=== PATIENT | female | born 1995 | race Caucasian/White ===

== ENCOUNTER 2017-04-29 08:40 | Inpatient (IN) | payer MEDICAID ==
[~2017-04-29] VITALS: Ht 152.4 cm; Wt 67.0 kg
[2017-04-29] VITALS (14 sets, daily range): BP systolic 106–121; BP diastolic 55–66; PULSE 80–96; RESP 15–18; TEMP 97.8–98.4; O2SAT 97–99
[~2017-04-29 08:40] MED LIST: PRENMIS9 PO; [UNRECOGNIZED DRUG - CODE] RECTAL
[2017-04-29] MEDS ORDERED: LACTATED RINGER'S 1000 ML INJ 1,000 ML IV ONE (09:48)
--- NOTE | 2017-04-29 09:50 | HHI.HP ---
HPI Chief Complaint Scheduled Date Seen: Apr 29, 2017 Travel History International Travel<30 Days: No Contact w/Intl Traveler<30Days: No Known Affected Area: No History of Present Illness HPI Patient is a 22 year old at 39/1 weeks gestation that presents to the [facility] for a scheduled . She is doing well today and has no acute concerns. She denies loss of fluid, vaginal bleeding, contractions, and endorses positive movements. She has no fever or chills. Weeks Gestation: 39 Para: 1 : 2 History Past Medical History Medical History: Denies Significant Hx Obstetric History Obstetric History First was postdates and was delivered by to failure to progress Past Surgical History Narrative Surgical section Family History Family History: Negative Social History Alcohol Use: No Tobacco Use: No Substance Abuse: No Allergies-Medications (Allergen,Severity, Reaction): Coded Allergies: No Known Allergies (Verified Adverse Reaction, Unknown, 04/18/17) Home Meds Active Scripts Hydrocortisone-Pramoxine Rectal (Procort Rectal) 1.85-1.15% Cream, 1 APPLIC RECTAL QID Y for ITCHING/INFLAMMATION, #60 GM 2 Refills Prov:Jessika Hearn 04/27/17 Uch540/Iron/Folic/Om3 ([facility] Dha Essential Pack) 27 Mg Iron-1 Mg- 374 Mg Cmbpkgdrcp, 1 TAB PO DAILY, #30 BOTTLE 11 Refills Prov:Jessika Hearn 01/18/17 Review of Systems Except as stated in HPI: all other systems reviewed are Neg General / Constitutional: No: Fever, Chills Eyes: No: Blurred Vision, Pain HENT: No: Headaches Cardiovascular: No: Chest Pain or Discomfort Respiratory: No: Short of Breath Gastrointestinal: No: Nausea, Vomiting Genitourinary: No: Dysuria Musculoskeletal: No: Weakness Physical Exam Narrative GENERAL: Well-nourished, well-developed patient. SKIN: Warm and dry. HEAD: Normocephalic and atraumatic. EYES: No scleral icterus. No injection or drainage. ENT: No nasal drainage noted. Mucous membranes pink. Airway patent. NECK: Supple, trachea midline. No JVD. CARDIOVASCULAR: Regular rate and rhythm without murmurs, gallops, or rubs. RESPIRATORY: Breath sounds equal bilaterally. No accessory muscle use. ABDOMEN/GI: Abdomen soft, non-tender, bowel sounds present, no rebound, no guarding Gravid to 39 weeks size Uterine Contractions: Irregular contractions FHT's: Category: 1 Baseline: 150 Reactive: Moderate Variability: Multiple accelerations present Decels: None EXTREMITIES: No cyanosis or edema. NEUROLOGICAL: Awake and alert. Motor and sensory grossly within normal limits. Five out of 5 muscle strength in all muscle groups. Normal speech. Caprini VTE Risk Assessment Caprini VTE Risk Assessment: No/Low Risk (score <= 1) Caprini Risk Assessment Model Point Value = 1 Point Value = 2 Point Value = 3 Point Value = 5 Age 41-60 Minor surgery BMI > 25 kg/m2 Swollen legs Varicose veins or History of unexplained or recurrent spontaneous Oral contraceptives or hormone replacement Sepsis (< 1 month) Serious lung disease, including pneumonia (< 1 month) Abnormal pulmonary function Acute myocardial infarction Congestive heart failure (< 1 month) History of inflammatory bowel disease Medical patient at bed rest Age 61-74 Arthroscopic surgery Major open surgery (> 45 min) Laparoscopic surgery (> 45 min) Malignancy Confined to bed (> 72 hours) Immobilizing plaster cast Central venous access Age >= 75 History of VTE Family history of VTE Factor V Leiden Prothrombin [id number] Lupus anticoagulant Anticardiolipin antibodies Elevated serum homocysteine Heparin-induced thrombocytopenia Other congenital or acquired thrombophilia Stroke (< 1 month) Elective arthroplasty Hip, pelvis, or leg fracture Acute spinal cord injury (< 1 month) Prophylaxis Regimen Total Risk Factor Score Risk Level Prophylaxis Regimen 0-1 Low Early ambulation 2 Moderate Order ONE of the following: *Sequential Compression Device (SCD) *Heparin 5000 units SQ BID 3-4 Higher Order ONE of the following medications: *Heparin 5000 units SQ TID *Enoxaparin/Lovenox 40 mg SQ daily (WT < 150 kg, CrCl > 30 mL/min) *Enoxaparin/Lovenox 30 mg SQ daily (WT < 150 kg, CrCl > 10-29 mL/min) *Enoxaparin/Lovenox 30 mg SQ BID (WT < 150 kg, CrCl > 30 mL/min) AND/OR *Sequential Compression Device (SCD) 5 or more Highest Order ONE of the following medications: *Heparin 5000 units SQ TID (Preferred with Epidurals) *Enoxaparin/Lovenox 40 mg SQ daily (WT < 150 kg, CrCl > 30 mL/min) *Enoxaparin/Lovenox 30 mg SQ daily (WT < 150 kg, CrCl > 10-29 mL/min) *Enoxaparin/Lovenox 30 mg SQ BID (WT < 150 kg, CrCl > 30 mL/min) AND *Sequential Compression Device (SCD) Data Data Vital Signs Reviewed: Yes Orders Orders Admit To Inpatient (04/29/17 ) Code Status (04/29/17 09:48) Vital Signs (Adult) .ON ADMISSION (04/29/17 09:48) Activity Oob Ad Saida (04/29/17 09:48) Heart (04/29/17 09:48) Urinary Catheter Management VELIA.Q8H (04/29/17 09:48) ^ Preps (04/29/17 09:48) Scd / Vladimir / Foot Pump VELIA.QSHIFT (04/29/17 09:48) ^ Ultrasound For Locatio (04/29/17 09:48) Diet Npo (04/29/17 Breakfast) Lactated Ringer's 1000 Ml Inj (Lr 1000 M (04/29/17 09:48) Lactated Ringer's 1000 Ml Inj (Lr 1000 M (04/29/17 10:18) Cefazolin 2 Gm Premix (Ancef 2 Gm Premix (04/29/17 11:00) Citric Acid-Sodium Citrate Liq (Bicitra (04/29/17 11:30) Type And Screen (04/29/17 09:48) Complete Blood Count With Diff (04/29/17 09:48) Urinalysis - C+S If Indicated (04/29/17 09:48) Drug Screen, Random Urine (04/29/17 09:48) Inpatient Certification (04/29/17 ) Specimen To Be Collected PRN (04/29/17 09:48) Specimen To Be Collected PRN (04/29/17 09:48) Assessment/Plan Assessment and Plan 22-year-old at 39/1 weeks gestation presents for repeat section -Intrauterine , heart tones reassuring category 1 -Posterior cervix on ultrasound -Admit to L&D -Nothing by mouth -Cefazolin 2 grams IV -Continue routine antepartum care Discharge Planning Possible discharge home in 2-3 days Maegan Sheriff MD R2 Apr 29, 2017 09:50
--- NOTE | 2017-04-29 09:52 | HHI.HP ---
History & Physical H&P RN MILITARY Consult (Detail) Patient Name: Valentina Palacios Unit Number: [id number] Date of : 1995 Patient Status: Registered Clinic Attending Doctor: Dionicio Alejandro II, MD HPI HPI Chief Complaint Desires repeat Date Seen: Apr 29, 2017 Time Seen: 0900 Travel History International Travel<30 Days: No Contact w/Intl Traveler<30Days: No Known Affected Area: No History of Present Illness HPI Patient is 22-year-old white female previous 1 now for repeat C -section. She has no complaints problems this , [facility]. She states vitamins has no other medications or issues at this time. Patient does want a repeat but no tubal ligation. Weeks Gestation: 3 9 Para: 1 : 2 History (Limited) History Obstetric History Obstetric History 1 for failure to progress Past Surgical History Narrative Surgical 1 Social History Alcohol Use: No Tobacco Use: No Substance Abuse: No Allergies-Medications Allergies-Medications (Allergen,Severity, Reaction): Coded Allergies: No Known Allergies (Verified Adverse Reaction, Unknown, 04/18/17) Home Meds Active Scripts Jah284/Iron/Folic/Om3 ([facility] Dha Essential Pack) 27 Mg Iron-1 Mg- 374 Mg Cmbpkgdrcp, 1 TAB PO DAILY, #30 BOTTLE 11 Refills Prov:Jessika Hearn 01/18/17 ROS Review of Systems General / Constitutional: No: Fever, Weight Gain, Chills, Other Eyes: No: Diploplia, Blurred Vision, Visual changes, Pain, Photophobia HENT: No: Headaches, Vertigo, Lightheadedness Cardiovascular: No: Irregular Rhythm, Chest Pain or Discomfort, Palpitations, Tachycardia, Syncope, Varicosities, Edema, Cyanosis Respiratory: No: Cough, Short of Breath, Other Gastrointestinal: No: Nausea, Vomiting, Diarrhea Genitourinary: No: Decreased Urinary Output, Oliguria Musculoskeletal: No: Limited ROM, Weakness, Cramping, Edema, Pain Skin: No Rash, No Itching, No Dryness, No Lumps, No Change in Pigmentation, No Change in Nails, No Alopecia, No Lesions Neurologic: No: Weakness, Dizziness, Syncope, Focal Abnormalities, Coordination Problem, Headache, Slurred Speech, Seizures Psychiatric: No: Depression, Suicidal Ideations, Homicidal Ideation Endocrine: No: Heat Intolerance, Cold Intolerance, Polydipsia, Polyuria, Other Physical Exam Physical Exam Narrative GENERAL: Well-nourished, well-developed patient. SKIN: Warm and dry. HEAD: Normocephalic and atraumatic. EYES: No scleral icterus. No injection or drainage. ENT: No nasal drainage noted. Mucous membranes pink. Airway patent. NECK: Supple, trachea midline. No JVD. CARDIOVASCULAR: Regular rate and rhythm without murmurs, gallops, or rubs. RESPIRATORY: Breath sounds equal bilaterally. No accessory muscle use. BREASTS: Bilateral exam showed no masses , no retractions, no nipple discharge. ABDOMEN/GI: Abdomen soft, non-tender, bowel sounds present, no rebound, no guarding Gravid to [3 9-] weeks size Fundal Height: [-3 9] GENITOURINARY: External Genitalia: intact and normal in appearance BUS glands: [-] Cervix: [post-] Dilatation: [closed-] Effacement: [-thick] Station: [-3] Presentation: [vtx-] Membranes: [intact ] Uterine Contractions: [none-] FHT's: Category: [1-] Baseline: [144-] Reactive: [-yes] Variability: [mod-] Decels: [-0] EXTREMITIES: No cyanosis or edema. BACK: Nontender without obvious deformity. No CVA tenderness. NEUROLOGICAL: Awake and alert. Motor and sensory grossly within normal limits. Five out of 5 muscle strength in all muscle groups. Normal speech. Data Data [facility] MDM Interpretation(s) 22-year-old white female 39 wks previous would like a repeat C -section . She has no complaints problems at this time, heart rate tracing reactive, no contractions, cervix is closed Plan Plan a scheduled repeat section on 04/29/17 she'll be 39 weeks and a day Diagnosis: previous Disposition: ADMIT Condition: Stable Dionicio Alejandro II, MD Apr 29, 2017 0900 Dionicio Alejandro II, MD Apr 29, 2017 09:52
[2017-04-29 09:57] LABS: AUTOMATED NEUTROPHIL # 6.5 TH/MM3 (1.8-7.7); BASOPHIL % 0.2 % (0.0-2.0); EOSINOPHIL % 0.3 % (0.0-4.0); HEMATOCRIT 34.2 % (35.0-46.0); HEMO FLAGS DIFF FINAL; LYMPH % 20.4 % (9.0-44.0); LYMPHOCYTE # 1.8 TH/MM3 (1.0-4.8); MEAN CELL VOLUME 90.9 FL (80.0-100.0); MEAN CORPUSCULAR HEMOGLOBIN 32.6 PG (27.0-34.0); MEAN CORPUSCULAR HGB CONC 35.9 % (32.0-36.0); MONO % 6.6 % (0.0-8.0); NEUT % 72.5 % (16.0-70.0); PLATELET COUNT 168 TH/MM3 (150-450); RED BLOOD COUNT 3.76 MIL/MM3 (4.00-5.30); RED CELL DISTRIBUTION WIDTH 13.5 % (11.6-17.2)
[2017-04-29 10:09] LABS: BACTERIA, URINE OCC /hpf; BLOOD, URINE NEG (NEG); COMMENT (UR) CULT NOT INDICATED; CULTURE IF INDICATED CULT NOT INDICATED; GLUCOSE,URINE NEG (NEG); KETONE, URINE NEG (NEG); MUCUS URINE FEW /lpf (OCC); NITRITE,URINE NEG (NEG); PH, URINE 7.5 (5.0-8.5); SQUAMOUS EPITHELIAL CELL URINE 5 /hpf (0-5); URINE COLOR YELLOW (YELLW/STRAW)
[2017-04-29] MEDS ORDERED: LACTATED RINGER'S 1000 ML INJ 1,000 ML IV SCH ×2 (10:18→17:13)
[2017-04-29] MEDS ORDERED: EPIDURAL-NALOXONE HCL 0.4 MG/ML AMP IV PUSH PRN (10:55)
[2017-04-29] MEDS ORDERED: EPIDURAL-DIPHENHYDRAMINE HCL 50 MG CAP PO PRN (10:55)
[2017-04-29] MEDS ORDERED: EPIDURAL-DO NOT ADMINISTER ANTICOAGULANTS PRN (10:55)
[2017-04-29] MEDS ORDERED: EPIDURAL-DIPHENHYDRAMINE HCL 50 MG/ML VIAL IV PUSH PRN (10:55)
[2017-04-29] MEDS ORDERED: EPIDURAL-NO SYSTEMIC NARCOTICS PRN (10:55)
[2017-04-29] MEDS ORDERED: ceFAZolin 2 GM PREMIX 50 ML IV SCH (11:00)
[2017-04-29] MEDS ORDERED: CITRIC ACID-SODIUM CITRATE LIQ 30 ML UDC PO SCH (11:30)
[2017-04-29] MEDS ORDERED: ACETAMINOPHEN 1000 MG/100 ML 100 ML IV ONE (12:01)
[2017-04-29] MEDS ORDERED: DOCUSATE SODIUM 50 MG/SENNA 8.6 MG TAB PO PRN (12:15)
[2017-04-29] MEDS ORDERED: ACETAMINOPHEN 325 MG TAB PO PRN (12:15)
[2017-04-29] MEDS ORDERED: SIMETHICONE 80 MG CHEWABLE TAB PO PRN (12:15)
[2017-04-29] MEDS ORDERED: oxyCODONE/ACETAMINOPHEN 5 MG/325 MG TAB PO PRN (12:15)
[2017-04-29] MEDS ORDERED: OXYTOCIN 30 UNITS-500ML PREMIX 500 ML IV ONE (12:15)
[2017-04-29] MEDS ORDERED: SODIUM CHLORIDE 0.9% FLUSH 10 ML FLUSH IV FLUSH PRN (12:15)
[2017-04-29] MEDS ORDERED: ONDANSETRON HCL 4 MG/2 ML VIAL IV PUSH PRN (12:15)
[2017-04-29] MEDS ORDERED: ZOLPIDEM TARTRATE 5 MG TAB PO PRN (12:15)
--- NOTE | 2017-04-29 12:24 | PD.OB.DELI ---
Procedure Note Section Procedure Performed by Rach Rivas Procedure: Repeat Low Transverse Sec Indication for delivery: Desired elective repeat Previous condition: Other Informed consent obtained: For procedure Anesthesia: Spinal Medication prior to procedure: As documented in eMAR Position: Supine Operative Features Skin Incision: Pfannenstiel Uterine Incision: Low transverse w/knife / blunt ext Membranes Ruptured: Artificially Presentation: Occiput anterior Delivery date: Apr 29, 2017 Delivery time: 11:16 Delivery of : Uneventful : Male One Minute : 9 Five Minute : 9 Weight: 3550g Status of infant: Viable, Cord blood, Nursery present Placenta delivered: Intact Medications: Antibiotics, Oxytocin Estimated blood loss: 450 Procedure tolerated: Well Maternal Condition: Stable Condition: Stable Procedure in detail The R/B/A were discussed with the pt, all questions answered, and consents signed. The pt was taken to the operating room where spinal anesthesia was found to be adequate. She was then prepped and draped in the normal sterile fashion in the dorsal supine position with leftward tilt. A Pfannenstiel skin incision was then made with the scalpel and carried through to the underlying layer of fascia. The fascia was incised in the midline and the incision extended laterally with Brown scissors. The superior aspect of the fascial incision was grasped with Amy clamps, elevated, and the underlying rectus muscles dissected off bluntly and with Brown scissors. Attention was then turned to the inferior aspect of this incision which, in a similar fashion, was grasped , tented up with Amy clamps, and the rectus muscles dissected off bluntly and with Brown scissors. The rectus muscles were then in the midline, and the peritoneum identified and entered bluntly. The peritoneal incision was stretched with good visualization of the bladder. The bladder blade was inserted and the vesicouterine peritoneum identified, grasped with pick-ups, and entered sharply with Metzenbaum scissors. This incision was extended laterally and a bladder flap created digitally. The bladder blade was then reinserted and the lower uterine segment incised in a transverse fashion with the scalpel. The uterine incision was stretched superiorly and inferiorly. The bladder blade was removed and the infant's head delivered atraumatically followed by the body. Delayed cord clamping ensued for 45sec while the was dried, suctioned, and stimulated. The cord was double clamped and cut and infant handed off to the waiting team. The placenta expelled with manual fundal massage. The uterus was exteriorized and cleared of all clots and debris. The uterine incision was repaired with 0- vicryl in a running, locked fashion. A second layer using 0-monocryl suture was used to obtain excellent hemostasis via embrication. The posterior cul-de-sac was suctioned and the uterus was returned to the abdomen. The gutters were cleared of all clots and debris. The peritoneum was reapproximated with 2-0 vicryl in a running fashion. The underneath fascia was inspected and found to be hemostatic. The muscles were reapproximated with 2-0 chromic. The fascia was closed with 0-vicryl in a running fashion. The skin was closed with 4-0 monocryl. Steristrips were placed and the incision dressed appropriately. The patient tolerated the procedure well. She was taken to the recovery room in stable condition. Sponge, lap, instrument, and needle counts were correct x3. Rach Rivas MD Apr 29, 2017 12:24
[2017-04-29] MEDS ORDERED: OXYTOCIN 30 UNITS-500ML PREMIX 500 ML ONE (12:35)
[2017-04-29] MEDS ORDERED: KETOROLAC TROMETHAMINE 60 MG/2 ML (IM) VIAL IM PRN (14:00)
[2017-04-29] MEDS: SODIUM CHLORIDE 0.9% FLUSH 10 ML FLUSH IV FLUSH SCH (20:32)
[2017-04-29] MEDS: IBUPROFEN 800 MG TAB PO PRN (20:46)
[2017-04-29] MEDS: oxyCODONE/ACETAMINOPHEN 5 MG/325 MG TAB PO PRN (20:46)
[2017-04-29] MEDS ORDERED: OXYTOCIN 30 UNITS-500ML PREMIX 500 ML IV PRN (22:15)
[2017-04-30 00:37] VITALS: BP 119/66; PULSE 98; RESP 16; TEMP 99
[2017-04-30] MEDS: oxyCODONE/ACETAMINOPHEN 5 MG/325 MG TAB PO PRN ×3 (01:33→12:12)
[2017-04-30 05:30] LABS: AUTOMATED NEUTROPHIL # 6.6 TH/MM3 (1.8-7.7); BASOPHIL % 0.3 % (0.0-2.0); EOSINOPHIL % 0.3 % (0.0-4.0); HEMO FLAGS DIFF FINAL; LYMPH % 23.5 % (9.0-44.0); LYMPHOCYTE # 2.3 TH/MM3 (1.0-4.8); MEAN CELL VOLUME 92.9 FL (80.0-100.0); MEAN CORPUSCULAR HEMOGLOBIN 32.7 PG (27.0-34.0); MEAN CORPUSCULAR HGB CONC 35.2 % (32.0-36.0); MONO % 7.6 % (0.0-8.0); NEUT % 68.3 % (16.0-70.0); PLATELET COUNT 148 TH/MM3 (150-450); RED BLOOD COUNT 3.34 MIL/MM3 (4.00-5.30); RED CELL DISTRIBUTION WIDTH 13.2 % (11.6-17.2); WHITE BLOOD COUNT 9.7 TH/MM3 (4.0-11.0)
[2017-04-30] MEDS: IBUPROFEN 800 MG TAB PO PRN (07:35)
[2017-04-30 08:00] VITALS: BP 106/68; PULSE 96; RESP 16; TEMP 98.5
--- NOTE | 2017-04-30 08:54 | HHI.OB ---
Subjective Post Operative Day: 1 Remarks Postoperative day #1. AFVSS overnight. Pain is intense at 8/10. Incision clean, dry, and intact, not draining. Lochia less than a period. Denies dysuria. She is feeding the baby via breast. Appetite good. No nausea or vomiting. Positive flatus. Negative bowel movement. Ambulating well. Denies fever, chills, cough, shortness of breath, chest pain, and calf pain but feels tired. Otherwise, she is doing well this morning and has no other complaints. Objective Vitals/I&O Vital Signs Date Time Temp Pulse Resp B/P (MAP) Pulse Ox O2 Delivery O2 Flow Rate FiO2 04/30/17 00:37 99.0 98 16 119/66 (83) 04/29/17 20:00 98.3 91 16 106/62 (77) 04/29/17 16:23 97.8 16 04/29/17 16:23 97.8 96 16 117/62 (80) 04/29/17 16:22 96 04/29/17 16:00 117/62 (80) 04/29/17 13:20 98.2 88 15 121/65 (83) 97 04/29/17 12:59 89 97 04/29/17 12:59 116/66 (83) 04/29/17 12:58 18 04/29/17 12:52 98.2 04/29/17 12:45 110/55 (73) 04/29/17 12:41 88 18 98 04/29/17 12:33 113/56 (75) 04/29/17 12:23 107/60 (76) 04/29/17 12:22 80 18 98 04/29/17 12:06 98.4 89 18 115/65 (82) 99 Result Diagram: 04/30/17 0452 Objective Remarks GENERAL: Well-nourished, well-developed patient. CARDIOVASCULAR: Regular rate and rhythm without murmurs, gallops, or rubs. RESPIRATORY: Breath sounds equal bilaterally. No accessory muscle use. ABDOMEN/GI: Abdomen soft, tender to palpation, bowel sounds present. Incision: Clean, dry and intact under pressure dressing. Fundus: Firm, non-tender at umbilicus. GENITOURINARY: Light to moderate bleeding. EXTREMITIES: No cyanosis or edema, non-tender, without signs of DVT. Medications and IVs Current Medications Medications (Trade) Dose Ordered Sig/Aníbal Route Start Time Stop Time Status Last Admin Lactated Ringer's 1,000 ml @ 100 mls/hr Q10H IV 04/29/17 17:13 04/30/17 13:12 04/29/17 18:45 Oxytocin 500 ml @ 100 mls/hr UNSCH X1 PRN IV 04/29/17 22:15 04/30/17 22:14 (NS Flush) 2 ml BID IV FLUSH 04/29/17 21:00 (NS Flush) 2 ml UNSCH PRN IV FLUSH 04/29/17 12:15 (Mylicon Chew) 80 mg QID PRN PO 04/29/17 12:15 (Tylenol) 650 mg Q6H PRN PO 04/29/17 12:15 (Motrin) 800 mg Q8H PRN PO 04/29/17 12:15 04/30/17 07:35 (Toradol Inj) 30 mg Q6H PRN IM 04/29/17 14:00 04/30/17 13:59 04/29/17 13:55 (Percocet 5-325 Mg) 1 tab Q4H PRN PO 04/29/17 12:15 (Percocet 5-325 Mg) 2 tab Q4H PRN PO 04/29/17 12:15 04/30/17 07:35 (Adina-Colace) 2 tab Q12H PRN PO 04/29/17 12:15 (Ambien) 5 mg HS PRN PO 04/29/17 12:15 (M-M-R Ii Inj) 0.5 ml ONCE ONCE SQ 04/30/17 16:00 04/30/17 16:01 (Boostrix Inj) 0.5 ml ONCE ONCE IM 04/30/17 16:00 04/30/17 16:01 (Zofran Inj) 4 mg Q6H PRN IV PUSH 04/29/17 12:15 Miscellaneous Information NO SYSTEMIC NARCOTICS TO BE GIVEN FO... UNSCH PRN .XX 04/29/17 10:55 04/30/17 10:54 (Narcan Inj) 0.4 mg UNSCH PRN IV PUSH 04/29/17 10:55 04/30/17 10:54 (Benadryl Inj) 25 mg Q6H PRN IV PUSH 04/29/17 10:55 04/30/17 10:54 (Benadryl) 50 mg Q6H PRN PO 04/29/17 10:55 04/30/17 10:54 Miscellaneous Information ALL NURSING DEPARTMENTS UNSCH PRN .XX 04/29/17 10:55 04/30/17 10:54 Assessment/Plan Assessment and Plan 22y/o female who is POD#1 s/p repeat -Continue routine care -Percocet and Motrin PRN pain -Pericolase PRN for constipation -Encouraged OOB. Advised pelvic rest for 6 wks -Will need a follow-up appointment within 1 week for incision check -Re: ctrl -patient is thinking about options Discussed with Dr. Rivas Discharge Planning Possible discharge home in 1 day. Patient would like to go home today Maegan Sheriff MD R2 Apr 30, 2017 08:54
[2017-04-30] MEDS: SODIUM CHLORIDE 0.9% FLUSH 10 ML FLUSH IV FLUSH SCH (10:49)
[2017-04-30 11:59] VITALS: BP 106/64; PULSE 92; RESP 16; TEMP 98.4
[2017-04-30] MEDS ORDERED: OXYC1TAB63 PO (13:35)
[2017-04-30] MEDS ORDERED: IBUP1TAB7 PO (13:35)
--- NOTE | 2017-04-30 13:39 | HHI.DCPOC ---
Discharge Care Plan Diagnosis: (1) delivery delivered Your Health Problems Are: Abdominal pain delivery Report Symptoms to Your Doctor -Temperature above 100.5 degrees -Redness, of incision or excessive or foul smelling drainage -Unusual pain or calf pain -Increased vaginal bleeding -Painful or difficulty urinating -Feelings of extreme sadness or anxiety after 2 weeks Goals to Promote Your Health * To prevent worsening of your condition and complications * To maintain your health at the optimal level Directions to Meet Your Goals Take your medications as prescribed Follow your dietary instruction Follow activity as directed Ensure plenty of rest for recovery Drink fluids for hydration Keep your appointments as scheduled Take your immunizations and boosters as scheduled If your symptoms worsen call your PCP, if no PCP go to Urgent Care Center or Emergency Room Smoking is Dangerous to Your Health. Avoid second hand smoke Call the 24-hour crisis hotline for domestic abuse at Heber Morin MD Apr 30, 2017 13:38
[2017-04-30] MEDS ORDERED: DIPHTH/TETANUS/ACEL PERTUSSIS (BOOSTER) 0.5 ML VIAL/PFS IM ONE (16:00)
[2017-04-30] MEDS ORDERED: MEASLES, MUMPS, RUBELLA VACCINE 0.5 ML VIAL SQ ONE (16:00)
== END 2017-04-30 15:27 | disposition home or self-care (01) | DRG 766 ==
LOC: H2EB 08:40 → H1EA 13:17
PROVIDERS: ADMIT Obstetrics & Gynecology; ATTEND Obstetrics & Gynecology
PROC: 10D00Z1 Extraction of Products of Conception, Low, Open Approach (ICD-10-PCS; principal; 2017-04-29)
DX: O34.211 Maternal care for low transverse scar from previous cesarean delivery (principal); Z37.0 Single live birth; Z3A.39 39 weeks gestation of pregnancy
CPT/HCPCS: 59025; 80307; 81001; 85025; 86850; 86900; 86901; J0131; J0690; J1885; J2590; J7120

== ENCOUNTER 2017-07-09 10:02 | Emergency (ER) | payer MEDICAID ==
[~2017-07-09] VITALS: Ht 152.4 cm; Wt 60.5 kg
[~2017-07-09 10:02] MED LIST changes: +NORE1CAP PO; -PRENMIS9 PO; -[UNRECOGNIZED DRUG - CODE] RECTAL
[2017-07-09 10:05] VITALS: BP 128/59; PULSE 109; RESP 14; TEMP 97.7; O2SAT 99
--- NOTE | 2017-07-09 11:04 | PD ---
HPI Chief Complaint: Back/ Neck Pain or Injury Time Seen by Provider: 10:23 Travel History International Travel<30 days: No Contact w/Intl Traveler<30days: No Traveled to known affect area: No History of Present Illness HPI 22-year-old female presents to the emergency Department with complaint of left upper back pain to her scapula and trapezius area that developed 3 weeks after having a on April 29, 2017. She says the pain has started to become worse and sometimes radiates to her neck. Reports that when the pain is intense she sometimes feels like she can't catch her breath. She denies hemoptysis. Denies chest pain or shortness of breath. Denies history of DVT/ PE. Denies encopresis, incontinence, saddle anesthesias. Denies paresthesias, loss of sensation, decreased range of motion, decreased strength to all extremities. Denies change in gait. Denies fevers, vomiting, abdominal pain, abnormal vaginal discharge, dysuria. Denies IV drug use or cancer. Rates pain 6/10. This pain is worse with standing and movement. Pain increases to 9/10. Reports it as a burning sensation. Has tried taking Advil with minimal symptom management. Primary care provider is at the health clinic. No known allergies. Denies significant past medical history. Has no other medical complaints. No other modifying factors or associated signs and symptoms. PFSH Past Medical History Hx Anticoagulant Therapy: No Anxiety: Yes Cardiovascular Problems: No Chemotherapy: No Cerebrovascular Accident: No Diabetes: No Diminished Hearing: No Respiratory: No Immunizations Current: Yes ?: Unknown LMP: Jun 29, 2017 Past Surgical History Hysterectomy: No Social History Alcohol Use: No Tobacco Use: No Substance Use: No Allergies-Medications (Allergen,Severity, Reaction): Coded Allergies: No Known Allergies (Verified Adverse Reaction, Unknown, 07/09/17) Reported Meds & Prescriptions Reported Meds & Active Scripts Active Ibuprofen 800 Mg Tab 800 Mg PO Q6HR PRN Robaxin (Methocarbamol) 500 Mg Tab 500 Mg PO QID PRN Taytulla (Norethindrone-Ethinyl Estradiol-Fe) 1-20 mg-Mcg Cap 1 Tab PO DAILY Review of Systems Except as stated in HPI: all other systems reviewed are Neg Physical Exam Narrative GENERAL: Well-nourished, well-developed female patient, in no acute distress; afebrile, nontoxic-appearing SKIN: Warm and dry. HEAD: Atraumatic. Normocephalic. EYES: Pupils equal and round. No scleral icterus. No injection or drainage. ENT: Mucosa pink and moist. Airway patent. NECK: Trachea midline. CARDIOVASCULAR: Regular rate and rhythm. No murmur appreciated. RESPIRATORY: No accessory muscle use. Breath sounds clear and equal bilaterally. GASTROINTESTINAL: Abdomen soft, non-tender, nondistended. Positive bowel sounds. No hepato-splenomegaly, or palpable masses. No guarding. MUSCULOSKELETAL: Bilateral lower extremities supple and non-tense with 2+ pedal pulses and sensory intact; with full range of motion and 5/5 strength. 2 + DTRs bilaterally. Active dorsiflexion and extension of bilateral feet. Bilateral straight leg raise is negative for low back pain. Ambulatory in room with normal gait. Sitting up in bed at 90. No obvious deformities. No clubbing. No cyanosis. No edema. BACK: No midline point tenderness on palpation of the cervical or thoracic spine. Minimal reproducible tenderness on palpation of trapezius musculature of the left upper back. No obvious deformities. NEUROLOGICAL: Awake and alert. Oriented 3. No obvious cranial nerve deficits. Motor grossly within normal limits. Normal speech. Moves all extremities. 5/5 strength to all extremities. Sensory intact. PSYCHIATRIC: Appropriate mood and affect; insight and judgment normal. Data Data Last Documented VS Vital Signs Date Time Temp Pulse Resp B/P (MAP) Pulse Ox O2 Delivery O2 Flow Rate FiO2 07/09/17 14:12 07/09/17 10:05 97.7 109 14 99 Room Air Orders Orders D-Dimer (07/09/17 10:45) Chest, Single Ap (07/09/17 10:45) Ct Pulmonary Angiogram (07/09/17 ) Basic Metabolic Panel (Bmp) (07/09/17 11:48) Complete Blood Count With Diff (07/09/17 11:48) Prothrombin Time / Inr (Pt) (07/09/17 11:48) Act Partial Throm Time (Ptt) (07/09/17 11:48) Iv Access Insert/Monitor (07/09/17 11:48) Sodium Chlor 0.9% 1000 Ml Inj (Ns 1000 M (07/09/17 11:48) Sodium Chloride 0.9% Flush (Ns Flush) (07/09/17 12:00) Ketorolac Inj (Toradol Inj) (07/09/17 12:00) Iohexol 350 Inj (Omnipaque 350 Inj) (07/09/17 13:30) Ed Discharge Order (07/09/17 13:56) Labs Laboratory Tests Test 07/09/17 10:55 07/09/17 12:00 Prothrombin Time 10.7 SEC Prothromb Time International Ratio 1.1 RATIO Activated Partial Thromboplast Time 25.4 SEC D-Dimer Quantitative (PE/DVT) 1.66 MG/L FEU White Blood Count 6.1 TH/MM3 Red Blood Count 4.30 MIL/MM3 Hemoglobin 13.3 GM/DL Hematocrit 38.1 % Mean Corpuscular Volume 88.6 FL Mean Corpuscular Hemoglobin 30.9 PG Mean Corpuscular Hemoglobin Concent 34.9 % Red Cell Distribution Width 12.5 % Platelet Count 227 TH/MM3 Mean Platelet Volume 9.7 FL Neutrophils (%) (Auto) 49.8 % Lymphocytes (%) (Auto) 38.9 % Monocytes (%) (Auto) 8.1 % Eosinophils (%) (Auto) 2.2 % Basophils (%) (Auto) 1.0 % Neutrophils # (Auto) 3.0 TH/MM3 Lymphocytes # (Auto) 2.4 TH/MM3 Monocytes # (Auto) 0.5 TH/MM3 Eosinophils # (Auto) 0.1 TH/MM3 Basophils # (Auto) 0.1 TH/MM3 CBC Comment DIFF FINAL Differential Comment Blood Urea Nitrogen 11 MG/DL Creatinine 0.53 MG/DL Random Glucose 78 MG/DL Calcium Level 8.9 MG/DL Sodium Level 139 MEQ/L Potassium Level 3.7 MEQ/L Chloride Level 106 MEQ/L Carbon Dioxide Level 27.5 MEQ/L Anion Gap 6 MEQ/L Estimat Glomerular Filtration Rate 143 ML/MIN MDM Medical Decision Making Medical Screen Exam Complete: Yes Emergency Medical Condition: Yes Medical Record Reviewed: Yes Differential Diagnosis Muscle strain, muscle spasm, PE Narrative Course This is a 22-year-old female with left upper back pain that developed 3 weeks after having a in April. Denies injury. She does report feeling like she can't catch her breath when the pain is intense. Her heart rate in triage was 109. Oxygen saturation is 99% on room air. No retractions or tachypnea. Lungs are clear and equal throughout. She is in no acute distress. I did see with Dr. Wong, my attending physician, and she agrees with my plan of care. D-dimer, chest x-ray ordered. 1151: D-dimer 1.66. Chest x-ray with no acute findings. Discussed lab findings with Dr. Wong and she agrees with my continued plan of care. CBC, BMP, coags, IV, Toradol, normal saline bolus, CTA ordered. 1258: CBC unremarkable. Coags unremarkable. BMP unremarkable. 1356: CTA with no acute findings. Chest X-Ray 07/09/17 1045 Signed Impressions: Service Date/Time: Sunday, July 09, 2017 11:18 - CONCLUSION: No acute disease. Antonio Frazier MD CT Angiography 07/09/17 0000 Signed Impressions: Service Date/Time: Sunday, July 09, 2017 13:23 - CONCLUSION: No pulmonary embolus. Antonio Frazier MD Discussed findings of the x-ray and the CT report with the patient. Robaxin and ibuprofen prescribed for home. Instructed patient to follow up with primary care provider. Patient verbalizes understanding and agreement with treatment plan. Patient is medically cleared and stable for discharge. Discussed reasons to return to the emergency department. Patient agrees with treatment plan. The patients vital signs are stable and the patient is stable for outpatient follow-up and treatment. Patient discharged home, stable and in no acute distress. Diagnosis Primary Impression: Upper back pain on left side Referrals: [facility] Primary Care Physician Patient Instructions: Back Pain (ED), General Instructions, Muscle Spasm (ED), Muscle Strain (ED) Additional Instructions: Tylenol or ibuprofen as directed and as needed for pain Robaxin as prescribed and as needed for muscle spasms Heating pad and/or ice to affected area to reduce pain Avoid aggravating activities; increase activity as tolerated Follow-up with primary care provider Return to emergency department immediately with worsening of symptoms Med/Other Pt SpecificInfo: Prescription(s) given Scripts Ibuprofen (Ibuprofen) 800 Mg Tab 800 MG PO Q6HR Y for PAIN, #30 TAB 0 Refills Prov: Larisa Zamudio [employer]ATOR 07/09/17 Methocarbamol (Robaxin) 500 Mg Tab 500 MG PO QID Y for MUSCLE SPASM, #30 TAB 0 Refills Prov: Larisa Zamudio 07/09/17 Disposition: 01 DISCHARGE HOME Condition: Stable Larisa Zamudio Jul 09, 2017 11:04
--- NOTE | 2017-07-09 11:39 | RADRPT ---
EXAM DATE/TIME: 07/09/2017 11:18 [facility] COMPARISON: No previous studies available for comparison. INDICATIONS : Shortness of breath and chest/upper back pain post . MEDICAL HISTORY : None. SURGICAL HISTORY : section. ENCOUNTER: Initial ACUITY: 2 months PAIN SCORE: 8/10 LOCATION: Bilateral chest FINDINGS: A single view of the chest demonstrates the lungs to be symmetrically aerated without evidence of mas s, infiltrate or effusion. The cardiomediastinal contours are unremarkable. Osseous structures are intact. CONCLUSION: No acute disease. Antonio Frazier MD on July 09, 2017 at 11:37 Board Certified Radiologist. This report was verified electronically.
[2017-07-09] MEDS ORDERED: SODIUM CHLOR 0.9% 1000 ML INJ 1,000 ML IV SCH (11:48)
[2017-07-09] MEDS ORDERED: SODIUM CHLORIDE 0.9% FLUSH 10 ML FLUSH IV FLUSH PRN (12:00)
[2017-07-09] MEDS ORDERED: KETOROLAC TROMETHAMINE 30 MG/ML (IVP) VIAL IVP ONE (12:00)
[2017-07-09 12:14] LABS: BASOPHIL # 0.1 TH/MM3 (0-0.2); EOSINOPHIL # 0.1 TH/MM3 (0-0.4); EOSINOPHIL % 2.2 % (0.0-4.0); HEMATOCRIT 38.1 % (35.0-46.0); HEMOGLOBIN 13.3 GM/DL (11.6-15.3); LYMPH % 38.9 % (9.0-44.0); LYMPHOCYTE # 2.4 TH/MM3 (1.0-4.8); MEAN CELL VOLUME 88.6 FL (80.0-100.0); MEAN CORPUSCULAR HEMOGLOBIN 30.9 PG (27.0-34.0); MEAN CORPUSCULAR HGB CONC 34.9 % (32.0-36.0); MEAN PLATELET VOLUME 9.7 FL (7.0-11.0); MONO % 8.1 % (0.0-8.0); MONOCYTE # 0.5 TH/MM3 (0-0.9); NEUT % 49.8 % (16.0-70.0); PLATELET COUNT 227 TH/MM3 (150-450); RED CELL DISTRIBUTION WIDTH 12.5 % (11.6-17.2); WHITE BLOOD COUNT 6.1 TH/MM3 (4.0-11.0)
[2017-07-09 12:26] LABS: INTERNATIONAL NORMALIZED RATIO 1.1 RATIO; PROTHROMBIN TIME - PATIENT 10.7 SEC (9.8-11.6)
[2017-07-09 12:37] LABS: BICARBONATE 27.5 MEQ/L (21.0-32.0); CALCIUM 8.9 MG/DL (8.5-10.1); CREATININE 0.53 MG/DL (0.50-1.00)
[2017-07-09] MEDS ORDERED: IOHEXOL 350 MG/ML 10 ML VIAL (for RAD DIAG) IVCONTRAST ONE (13:30)
--- NOTE | 2017-07-09 13:38 | RADRPT ---
EXAM DATE/TIME: 07/09/2017 13:23 [facility] COMPARISON: No previous studies available for comparison. INDICATIONS : Left upper back pain for two weeks. IV CONTRAST: 50 cc Omnipaque 350 (iohexol) IV RADIATION DOSE: 7.41 CTDIvol (mGy) MEDICAL HISTORY : None SURGICAL HISTORY : section. ENCOUNTER: Initial ACUITY: 2 weeks PAIN SCALE: 5/10 LOCATION: Left upper chest TECHNIQUE: Volumetric scanning of the chest was performed using a pulmonary embolism protocol MIP images were re constructed. Using automated exposure control and adjustment of the mA and/or kV according to patien t size, radiation dose was kept as low as reasonably achievable to obtain optimal diagnostic quality images. DICOM format image data is available electronically for review and comparison. Follow-up recommendations for detected pulmonary nodules are based at a minimum on nodule size and pa tient risk factors according to Fleischner Society Guidelines. FINDINGS: PULMONARY ARTERIES: No filling defects are seen in the pulmonary arteries through the segmental level. LUNGS: There is no consolidation or pneumothorax . No concerning pulmonary nodule is visualized. PLEURAE: There is no pleural thickening or pleural effusion. MEDIASTINUM: There is good visualization of the great vessels of the middle mediastinum. No evidence of mediastin al or hilar adenopathy/mass. MUSCULOSKELETAL: Within normal limits for patient age. MISCELLANEOUS: The visualized upper abdominal organs demonstrate no acute abnormality. CONCLUSION: No pulmonary embolus. Antonio Frazier MD on July 09, 2017 at 13:35 Board Certified Radiologist. This report was verified electronically.
[2017-07-09] MEDS ORDERED: IBUP1TAB7 PO (13:56)
[2017-07-09] MEDS ORDERED: ROBA500T PO (13:56)
== END 2017-07-09 14:12 | disposition home or self-care (01) ==
LOC: NEPD 10:02
DX: M54.6 Pain in thoracic spine (principal); R06.02 Shortness of breath
CPT/HCPCS: 71045; 71275; 80048; 85025; 85379; 85610; 85730; 96361; 96374; 99285; J1885; J7030; Q9967

== ENCOUNTER 2017-07-24 08:36 | Emergency (ER) | payer SELFPAY ==
[~2017-07-24] VITALS: Ht 152.4 cm; Wt 60.0 kg
[~2017-07-24 08:36] MED LIST changes: +IBUP1TAB7 PO; +ROBA500T PO
[2017-07-24 08:40] VITALS: BP 124/73; PULSE 82; RESP 20; TEMP 99.1; O2SAT 100
--- NOTE | 2017-07-24 09:14 | PD ---
HPI Chief Complaint: Back/ Neck Pain or Injury Time Seen by Provider: 08:53 Travel History International Travel<30 days: No Contact w/Intl Traveler<30days: No Traveled to known affect area: No History of Present Illness HPI 22-year-old female presents emergency department with recurrent upper back pain. Patient seen previously in June with several complaints. 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 She was moving heavy crates at the time. She denies shortness of breath, nausea, vomiting, wheezing , or tingling or weakness. She has no headache. Patient is C- section in April. She is no longer breast-feeding. Patient states the pain is worse with movement but not deep breath. Pain is a 6 out of 10, and worse with movement. She has no known drug allergies. PFSH Past Medical History Hx Anticoagulant Therapy: No Anxiety: Yes Cardiovascular Problems: No Chemotherapy: No Cerebrovascular Accident: No Diabetes: No Diminished Hearing: No Respiratory: No Immunizations Current: Yes Past Surgical History Hysterectomy: No Social History Alcohol Use: No Tobacco Use: No Substance Use: No Allergies-Medications (Allergen,Severity, Reaction): Coded Allergies: No Known Allergies (Verified Adverse Reaction, Unknown, 07/24/17) Reported Meds & Prescriptions Reported Meds & Active Scripts Active Flexeril (Cyclobenzaprine HCl) 10 Mg Tab 10 Mg PO TID Ibuprofen 600 Mg Tab 600 Mg PO Q6H PRN Ibuprofen 800 Mg Tab 800 Mg PO Q6HR PRN Robaxin (Methocarbamol) 500 Mg Tab 500 Mg PO QID PRN Taytulla (Norethindrone-Ethinyl Estradiol-Fe) 1-20 mg-Mcg Cap 1 Tab PO DAILY Review of Systems Except as stated in HPI: all other systems reviewed are Neg General / Constitutional: No: Fever Eyes: No: Visual changes HENT: No: Headaches Cardiovascular: No: Chest Pain or Discomfort Respiratory: No: Shortness of Breath Gastrointestinal: No: Abdominal Pain Genitourinary: No: Dysuria Musculoskeletal: Positive: Myalgias, Limited ROM, Pain (See history of present illness per) Skin: No Rash Neurologic: No: Weakness Psychiatric: No: Depression Endocrine: No: Polydipsia Hematologic/Lymphatic: No: Easy Bruising Physical Exam Narrative GENERAL: Patient appears in no obvious distress. SKIN: Warm and dry. Normal color. Normal turgor. No rash. HEAD: Atraumatic. Normocephalic. EYES: Pupils equal and round. No scleral icterus. No injection or drainage. ENT: No nasal bleeding or discharge. Mucous membranes pink and moist. Pharynx clear. Airways patent. NECK: Trachea midline. Supple and nontender. CARDIOVASCULAR: Regular rate and rhythm. RESPIRATORY: No accessory muscle use. Clear to auscultation. Breath sounds equal bilaterally. GASTROINTESTINAL: Abdomen soft, non-tender, nondistended. Hepatic and splenic margins not palpable. MUSCULOSKELETAL: Extremities without clubbing, cyanosis, or edema. No obvious deformities. Patient is point tenderness along the left subscapularis soft tissues, with obvious muscle spasm palpable, with reproduction of symptoms with range of motion of left shoulder. Patient has no bony tenderness of the spine. Patient has no discernible weakness or decreased range of motion in the left shoulder or neck. NEUROLOGICAL: Awake and alert. No obvious cranial nerve deficits. Motor grossly within normal limits. Five out of 5 muscle strength in the arms and legs. Normal speech. PSYCHIATRIC: Appropriate mood and affect; insight and judgment normal. Data Data Last Documented VS Vital Signs Date Time Temp Pulse Resp B/P (MAP) Pulse Ox O2 Delivery O2 Flow Rate FiO2 07/24/17 08:40 99.1 82 20 124/73 (90) 100 MDM Medical Decision Making Medical Screen Exam Complete: Yes Emergency Medical Condition: Yes Medical Record Reviewed: Yes Differential Diagnosis Back strain. Muscle spasm. Spinal abscess. Discitis. Narrative Course Patient is medically stable at time of exam. Labs and radiographic imaging is not warranted based on my history and physical. Patient is treated with ibuprofen 600 mg 4 times daily #40. Patient is given Flexeril 10 mg up to 3 times daily #15. Patient is to use heat, range of motion and gentle stretching as discussed. Work note for today is given. Patient should follow-up with her primary care physician if symptoms do not improve or worsen as needed. Diagnosis Primary Impression: Strain of left levator scapulae muscle Qualified Codes: S46.812A - Strain of other muscles, fascia and tendons at shoulder and upper arm level, left arm, initial encounter Referrals: Primary Care Physician Patient Instructions: Exercises for Internal and External Shoulder Rotation (ED ), Exercises for Shoulder Abduction and Adduction (ED), General Instructions, Muscle Spasm (ED) Departure Forms: Work Release Enter return to work date: Jul 25, 2017 Additional Instructions: Patient is medically stable at time of exam. Labs and radiographic imaging is not warranted based on my history and physical. Patient is treated with ibuprofen 600 mg 4 times daily #40. Patient is given Flexeril 10 mg up to 3 times daily #15. Patient is to use heat, range of motion and gentle stretching as discussed. Work note for today is given. Patient should follow-up with her primary care physician if symptoms do not improve or worsen as needed. Med/Other Pt SpecificInfo: Prescription(s) given Scripts Cyclobenzaprine (Flexeril) 10 Mg Tab 10 MG PO TID for Muscle Spasm, #15 TAB 0 Refills Prov: Lexus Moreno MD 07/24/17 Ibuprofen (Ibuprofen) 600 Mg Tab 600 MG PO Q6H Y for Pain/Inflammation, #40 TAB 0 Refills Prov: Lexus Moreno MD 07/24/17 Disposition: 01 DISCHARGE HOME Condition: Stable Dell Brice Jul 24, 2017 09:14
[2017-07-24] MEDS ORDERED: IBUP-232 PO (09:15)
[2017-07-24] MEDS ORDERED: CYCL10TA PO (09:15)
== END 2017-07-24 09:39 | disposition home or self-care (01) ==
LOC: NEPD 08:36
DX: S46.812A Strain of other muscles, fascia and tendons at shoulder and upper arm level, left arm, initial encounter (principal); X50.9XXA Other and unspecified overexertion or strenuous movements or postures, initial encounter; Y93.89 Activity, other specified
CPT/HCPCS: 99283